=== PATIENT | female | born 1980 | race Caucasian/White ===

== ENCOUNTER 2020-12-24 23:01 | Inpatient (IN) | payer OTHER, SELFPAY ==
[2020-12-24 23:01] VITALS: BP 129/94; PULSE 84; RESP 16; TEMP 36.9; O2SAT 100; BMI 30.8
--- NOTE | 2020-12-24 23:22 | CT_ITS ---
HISTORY: Patient present pain, diffuse but more RLQ TECHNIQUE: Helically acquired images were obtained of the abdomen and pelvis following the intravenous administration of ml of 100mL Isovue-300 Iodinated contrast. No Oral contrast was administered. Coronal and sagittal reformats obtained. A radiation dose optimization technique was used for this scan. COMPARISON: None FINDINGS: # of images incl. paperwork: 398 LUNG BASES: Unremarkable. LIVER T BILIARY TRACT: Unremarkable gallbladder. Small hepatic hypodensities which are too small to characterize. ADRENAL GLANDS: Unremarkable. SPLEEN: Unremarkable. PANCREAS: Unremarkable. KIDNEYS/URETERS/BLADDER: No hydronephrosis or perinephric inflammation. Unremarkable ureters and bladder. LYMPH NODES: No suspicious adenopathy. STOMACH, SMALL AND LARGE BOWEL: No acute gastric finding. No small bowel obstruction or gross wall thickening. Appendix enlarged 1.3 cm with multiple appendicoliths at the appendix base. Moderate periappendiceal inflammatory stranding with small focus of extraluminal air, coronal image 52. No additional or remote free air. Likely secondary wall thickening of the cecum and adjacent terminal ileum. ASCITES/FREE AIR: Small volume free fluid in the dependent pelvis. No organized abscess. AORTA: Unremarkable. PELVIS: Unremarkable uterus. No evidence of adnexal mass. Multiple normal small follicles. MUSCULOSKELETAL: No acute osseous finding. CT/Abdomen/Pelvis W IV Cont ONLY IMPRESSION: 1. Acute appendicitis with small focus of adjacent extraluminal air consistent with perforation. 2. Likely secondary wall thickening of the cecum and adjacent terminal ileum. Primary ileocolitis or neoplastic etiology for appendicitis less likely given the presence of large appendicoliths though not completely excluded. Surgical consultation recommended. Individualized dose optimization techniques were used for this CT. at 0334 Reported and signed by: Jonnathan Ivy MD N.B. : The above Results were Read Back by Jonnathan Ivy MD to Dr. Fish Sauceda MD, and understanding confirmed on 12/25/2020 03:34:32 (ET). Electronically Signed: Jonnathan Ivy MD at 3:32 EDT Tel , Service support ,
[2020-12-24] MEDS: Ondansetron 4 MG/2 ML Vial IV (23:40)
[2020-12-24] MEDS: 0.9% Normal Saline 1,000 ML 1000 ML IV (23:40)
[2020-12-24] MEDS: Morphine 4 MG/ML Syringe IV (23:40)
[2020-12-24 23:44] LABS: Absolute Lymphocyte Count 1.47 X10^3/uL (0.83-4.51); Absolute Neutrophil Count 7.9 X10^3/uL (2.0-7.7); Basophil# 0.03 X10^3/uL; Basophil% 0.3 % (0-1); Hematocrit 45.1 % (37-47); Hemoglobin 14.4 g/dL (12.0-15.0); Lymphocyte # 1.47 X10^3/ul (0.83-4.51); Lymphocyte % 14.5 % (19-41); Mean Corp Hgb Conc 31.9 g/dL (32-36); Mean Platelet Vol. 9.3 fl (6.2-12.0); Monocyte# 0.63 X10^3/uL; Monocyte% 6.2 % (0-10); NRBC Flagged by Analyzer 0 % (0-5); Neutrophil # 7.91 X10^3/uL (2.7-7.7); Neutrophil % 77.7 % (47-70); Platelet Count 308 K/mm3 (150-450); RBC Distribution Width CV 11.6 % (11.6-14.6); RBC Distribution Width SD 40.2 fl (35.1-43.9); White Blood Count 10.2 K/mm3 (4.4-11.0)
[2020-12-25] VITALS (15 sets, daily range): BP systolic 109–134; BP diastolic 59–90; PULSE 62–109; RESP 16–18; TEMP 36.5–38.3; O2SAT 94–100; BMI 31.6
--- NOTE | 2020-12-25 | APP_PTH ---
PATIENT: JENNA AZUL LOC: MS3 U#:[id number] AGE/SX: 40/F ROOM: [facility] RE12/25/[address]: Dr. Oksana Carmichael MD : 1980 BED: 1 DIS: 12/29/2020 SPEC #: [id number] RECD: 12/26/20 07:32 STATUS: CODY PAIZ #: [id number] VIDHYA: 12/25/20 00:[address]: Oksana Carmichael DEPT: SURGICAL PATHOLOGY RECD BY: Hemal Mclaughlin ENTERED: 12/26/20 08:08 SP TYPE: APPENDIX OTHR DR: Dr. Adams Kahn MD Tissues: Appendix, NOS Procedures: Surgery Specimen Level III HEADER OPERATION: Laparoscopic appendectomy PRE-OP DIAGNOSIS: Acute appendicitis with small focus of adjacent extraluminal air consistent with perforation TISSUE SUBMITTED: Appendix MICROSCOPIC DIAGNOSIS Appendix, appendectomy: Acute appendicitis. Acute serositis. AM:marquise 12/27/2020 MICROSCOPIC DESCRIPTION Slides are reviewed. GROSS DESCRIPTION Received in fixative is one container labeled with the patient's name and designated appendix. The specimen consists of a vermiform appendix measuring 12 cm in length and varying in diameter from 0.6 to 1.8 cm. Serial sections reveal intraluminal fecal material. No mass lesions are identified. Travel Med Surg Rn sections are submitted in one cassette. / AM:marquise 12/26/20 TC:2 CPT: 98048
[2020-12-25 00:10] LABS: Internal QC Validated? YES +Cl - CLEAR BKGD; Pregnancy, Serum, hCG Quali. NEGATIVE Negative
[2020-12-25 00:18] LABS: ALB/GLOB Ratio 0.9 RATIO (0.9-2.4); AST(SGOT) 18 U/L (15-37); Alanine Aminotransfer ALT/SGPT 29 U/L (13-56); Albumin, Serum 3.8 g/dL (3.2-5.0); Alkaline Phosphatase 70 U/L (45-117); Anion Gap 6 (5-15); BUN 11 mg/dL (7-18); BUN/Creat Ratio 13.7 RATIO (10-20); Calcium,Total 8.7 mg/dL (8.5-10.1); Chloride 106 mmol/L (98-107); EST Glomerular Filtration Rate 85 mL/min (>60); Est Glom Filt Rate - Afr Amer 103 mL/min (>60); Estimated Creatinine Clearance 71.95 ml/min; Globulin 4.3 g/dL (2.2-4.2); Glucose 96 mg/dL (74-106); Lipase 118 U/L (73-393); Potassium 3.6 mmol/L (3.5-5.1); Protein, Total 8.1 g/dL (6.4-8.2); Sodium Level 137 mmol/L (136-145)
[2020-12-25 00:43] LABS: Bacteria 0 SEEN /hpf (None Seen); Mucous, Urine 0 SEEN /hpf (<or=2+); Red Blood Cells-Urine 0 SEEN /hpf (0-5); Squamous Epithelial Cells - UA 0 SEEN /hpf (5-10); White Blood Cells 0 SEEN /hpf (0-5)
[2020-12-25 00:50] LABS: Color, Urine Yellow (Yellow); Glucose, Dipstick Normal (Normal); Ketone-Dipstick Negative (Negative); Leukocyte Esterase-Dipstick Negative /ul (Negative); Nitrite-Dipstick Negative (Negative); Occult Blood-Urine Negative /ul (Negative); Protein-Dipstick Negative (Negative); Specific Gravity, Urine 1.005 (1.002-1.030); Urine Bilirubin Dipstick Negative (Negative); Urine Clarity Clear (Clear); Urine Urobilinogen Normal (Normal)
--- NOTE | 2020-12-25 01:49 | EKG12_ITS ---
Test Reason : EXM Blood Pressure : / mmHG Vent. Rate : 061 BPM Atrial Rate : 061 BPM P-R Int : 174 ms QRS Dur : 082 ms QT Int : 404 ms P-R-T Axes : 057 082 042 degrees QTc Int : 406 ms Normal sinus rhythm with sinus arrhythmia Normal ECG Confirmed by NICOLE MORALES, HARLAN ([id number]), publishing editor MAIDA MURCIA ([id number]) on 12/29/2020 10:56:45 AM Referred By: [facility] Confirmed By:HARLAN RIVERA MD
--- NOTE | 2020-12-25 02:34 | EDS_ITS ---
HPI HPI - GI History of Present Illness Chief Complaint: Abd Pain Informant: patient Narrative Narrative: Patient presents with abdominal pain. This has been going on for about a day. She thought it was related to eating a fast food poultry sandwich. She had some cramping and nausea. Now the pain is settled more toward the lower abdomen. She states it is across the front. Mild nausea. She had dry heaves but no vomiting. No change in bowel habits. No urinary symptoms. No real pelvic pain. Last menstrual period was 5 days ago and normal. Laying flat or pressing on it makes it worse. Sitting up makes it better. She denies fevers or chills. She has had prior C-sections x4 as well as tubal ligation. No appendectomy or cholecystectomy. [facility] Medical History Migraines Home Medications frovatriptan 2.5 mg PO Q2H PRN 12/24/20 [History Last Taken Unknown] topiramate [Topamax] 100 mg PO DAILY 12/24/20 [History Last Taken Unknown] Allergy/AdvReac Type Severity Reaction Status Date / Time No Known Allergies Allergy Verified 12/24/20 23:03 Surgical History History of History of carpal tunnel repair History of tubal ligation Social History Smoking Status: Former smoker ROS ROS ED Constitutional Constitutional ED: Denies chills or fever(s) ENT ENT ED: Denies rhinorrhea or sore throat Cardiovascular Cardiovascular: Denies chest pain Respiratory/Chest Respiratory/Chest: Denies cough or dyspnea Gastrointestinal Gastrointestinal: Reports abdominal pain, nausea and vomiting; Denies constipation, diarrhea or melena Genitourinary Genitourinary ED: Denies dysuria or hematuria Musculoskeletal Musculoskeletal: Denies back pain Integumentary Denies rash Neurologic Neurologic: Denies headache(s) Endocrine Endocrinology: Denies polydipsia or polyuria Hematologic/Lymphatic Hematologic/Lymphatic: Denies easy bleeding or easy bruising Allergic/Immunologic Allergic/Immunologic ED: Denies urticaria EXAM Physical Exam Const Vital Signs: 12/24/20 23:01 12/25/20 01:47 Temperature 98.5 F Temperature Source Temporal Pulse Rate 84 71 Respiratory Rate 16 16 Blood Pressure 129/94 H 116/59 L Blood Pressure Mean 105 78 Pulse Ox 100 100 Oxygen Delivery Method Room Air Positive well nourished and well developed General Appearance ED: well developed and NAD HEENT Reports dry mucous membranes Mouth ED: Yes dry mucous membranes Mouth: dry mucous membranes Resp normal respiratory effort and clear to auscultation bilaterally Cardio regular rate, regular rhythm and no murmurs GI non-distended GI Narrative: She does have some tenderness that is mostly in the right lower quadrant. Although she describes the pain across both sides of her lower abdomen it is clearly tender more in the right. There is no rebound or guarding. She is also more comfortable sitting up than laying back. Mild psoas sign. Auscultation: normoactive bowel sounds Palpation: soft and tender Back/Spine no CVA tenderness Extremity General Extremety ED: Negative for edema General Extremity: Negative for edema Neuro Sensorium / Orientation: alert and oriented to person Psych mental status grossly normal Skin Lesions: no lesions Rashes: no rashes MDM MDM MDM Narrative Medical decision making narrative: Patient's blood work and urinalysis including liver function tests lipase and CBC all look essentially normal. Serum is not reported but we have been having computer issues tonight. I have it verbally reported to us that it is negative they just cannot get it to show on the computer. We are also having issues with getting CTs read or transferring the reads to our system. I have looked at her scan. She does appear to have an enlarged appendix with suspicious for appendicolith and stranding inflammation all consistent with appendicitis. This does match her story of generalized abdominal symptoms that moved to the lower abdomen and now to the right lower quadrant. She does not have a an acute surgical abdomen. She is still comfortable. She feels little better with treatment here. I have given her antibiotics. She is n.p.o. I discussed the case with surgeon, Dr. Carmichael. Patient is being admitted. Lab Data Attestation: I reviewed the patient's lab results. Labs: Laboratory Results - last 24 hr 12/24/20 12/24/20 12/25/20 23:39 23:39 00:15 WBC 10.2 RBC 4.80 Hgb 14.4 Hct 45.1 MCV 94.0 MCH 30.0 MCHC 31.9 L RDW Std Deviation 40.2 RDW Coeff of Amber 11.6 Plt Count 308 MPV 9.3 Immature Gran % (Auto) 0.300 Neut % (Auto) 77.7 H Lymph % (Auto) 14.5 L [place] % (Auto) 6.2 Eos % (Auto) 1.0 Baso % (Auto) 0.3 Absolute Neuts (auto) 7.9 H Absolute Lymphs (auto) 1.47 Nucleated RBC % 0 Sodium 137 Potassium 3.6 Chloride 106 Carbon Dioxide 25.0 Anion Gap 6 BUN 11 Creatinine 0.80 Estim Creat Clear Calc 71.95 Est GFR (MDRD) Af Amer 103 Est GFR (MDRD) Non-Af 85 BUN/Creatinine Ratio 13.7 Glucose 96 Calcium 8.7 Total Bilirubin 1.00 AST 18 ALT 29 Alkaline Phosphatase 70 Total Protein 8.1 Albumin 3.8 Globulin 4.3 H Albumin/Globulin Ratio 0.9 Lipase 118 Urine Color Yellow Urine Clarity Clear Urine pH 7.0 Ur Specific [place] 1.005 Urine Protein Negative Urine Glucose (UA) Normal Urine Ketones Negative Urine Occult Blood Negative Urine Nitrite Negative Urine Bilirubin Negative Urine Urobilinogen Normal Ur Leukocyte Esterase Negative Urine RBC 0 SEEN Urine WBC 0 SEEN Ur Squamous Epith Cells 0 SEEN Urine Bacteria 0 SEEN Urine Mucus 0 SEEN Discharge Plan Dx/Rx/DC Orders Clinical Impression: Acute appendicitis Disposition Disposition: Acute Care Hospital [facility]
[2020-12-25] MEDS: 0.9% Normal Saline 1,000 ML 125 ML IV ×4 (04:23→20:08)
[2020-12-25] MEDS: Morphine 4 MG/ML Syringe IV ×6 (04:24→21:49)
--- NOTE | 2020-12-25 04:29 | PCM.HP.STD ---
HPI - General General Date of Admission: 12/25/20 HPI Narrative JENNA AZUL, is a 40 F who presents RLQ abdominal pain since Saturday morning. She states that the pain has been a sharp, cramping pain that has been consistently present, though it increases and decreases. The pain has been as severe as 9 out of 10 on a scale of 1-10. Presently, she states that it is a 6 out of 10. She has nausea but denies emesis. She denies dysuria. She presented to [facility] ED with workup as follows. WBC is normal but there is a left shift of the differential. She presently has a low grade temp of 99F. CT scan revealed dilated appendix with fecolith and with surrounding inflammation and small foci of air probably indicating perforation. [facility] Medical History Migraines Post depression Home Medications frovatriptan 2.5 mg PO Q2H PRN 12/24/20 [History Last Taken 12/24/20] topiramate [Topamax] 100 mg PO DAILY 12/24/20 [History Last Taken 12/24/20] Allergy/AdvReac Type Severity Reaction Status Date / Time No Known Allergies Allergy Verified 12/24/20 23:03 no significant family history Surgical History History of History of carpal tunnel repair History of tubal ligation [place] teeth extracted Social History Smoking Status: Former smoker ROS ROS Narrative Denies history of NC/CVA, denies TOB use at present, denies chronic numbness/weakness Had history of kidney infection Constitutional Constitutional: Denies fever(s) Cardiovascular Cardiovascular: Denies chest pain Respiratory/Chest Respiratory/Chest: Denies shortness of breath at rest or shortness of breath with exertion Gastrointestinal Gastrointestinal: Reports abdominal pain; Denies hematemesis or hematochezia Genitourinary Genitourinary: Denies dysuria Musculoskeletal Musculoskeletal: Denies abnormal gait or difficulty walking Integumentary Integumentary: Denies non-healing lesions Neurologic Neurologic: Denies numbness Vital Signs Vital Signs Vital Signs: 12/24/20 23:01 12/25/20 01:47 12/25/20 03:08 Temperature 98.5 F 97.7 F L Temperature Source Temporal Oral Pulse Rate 84 71 74 Respiratory Rate 16 16 16 Blood Pressure 129/94 H 116/59 L 123/80 H Blood Pressure Mean 105 78 94 Blood Pressure Source Blood Pressure Position Blood Pressure Location Pulse Ox 100 100 100 Oxygen Delivery Method Room Air Room Air 12/25/20 03:58 Temperature 99.5 F H Temperature Source Oral Pulse Rate 77 Respiratory Rate 16 Blood Pressure 126/80 H Blood Pressure Mean 95 Blood Pressure Source Monitor Blood Pressure Position Sitting Blood Pressure Location Left Arm Pulse Ox 100 Oxygen Delivery Method Room Air Weight Weight: 75.9 kg Body Mass Index (BMI) 31.6 Physical Exam Const oriented x3 Neck supple Resp normal respiratory effort Cardio regular rate GI GI Narrative: abdomen is soft but tender in the RLQ with positive Rovsing's sign, minimal guarding Extremity no clubbing, cyanosis or edema and no calf tenderness Neuro no focal motor deficits and gait normal Psych cooperative and affect normal Results Lab / Micro Data Result Diagrams: 12/24/20 23:39 12/24/20 23:39 Labs: Laboratory Results - last 24 hr 12/24/20 23:39: WBC 10.2, RBC 4.80, Hgb 14.4, Hct 45.1, MCV 94.0, MCH 30.0, MCHC 31.9 L, RDW Std Deviation 40.2, RDW Coeff of Amber 11.6, Plt Count 308, MPV 9.3, Immature Gran % (Auto) 0.300, Neut % (Auto) 77.7 H, Lymph % (Auto) 14.5 L, [place] % (Auto) 6.2, Eos % (Auto) 1.0, Baso % (Auto) 0.3, Absolute Neuts (auto) 7.9 H, Absolute Lymphs (auto) 1.47, Nucleated RBC % 0 12/24/20 23:39: Sodium 137, Potassium 3.6, Chloride 106, Carbon Dioxide 25.0, Anion Gap 6, BUN 11, Creatinine 0.80, Estim Creat Clear Calc 71.95, Est GFR (MDRD) Af Amer 103, Est GFR (MDRD) Non-Af 85, BUN/Creatinine Ratio 13.7, Glucose 96, Calcium 8.7, Total Bilirubin 1.00, AST 18, ALT 29, Alkaline Phosphatase 70, Total Protein 8.1, Albumin 3.8, Globulin 4.3 H, Albumin/Globulin Ratio 0.9, Lipase 118 12/25/20 00:15: Urine Color Yellow, Urine Clarity Clear, Urine pH 7.0, Ur Specific [place] 1.005, Urine Protein Negative, Urine Glucose (UA) Normal, Urine Ketones Negative, Urine Occult Blood Negative, Urine Nitrite Negative, Urine Bilirubin Negative, Urine Urobilinogen Normal, Ur Leukocyte Esterase Negative, Urine RBC 0 SEEN, Urine WBC 0 SEEN, Ur Squamous Epith Cells 0 SEEN, Urine Bacteria 0 SEEN, Urine Mucus 0 SEEN Radiology Impression Abdomen/Pelvis CT 12/24/20 23:22 IMPRESSION: 1. Acute appendicitis with small focus of adjacent extraluminal air consistent with perforation. 2. Likely secondary wall thickening of the cecum and adjacent terminal ileum. Primary ileocolitis or neoplastic etiology for appendicitis less likely given the presence of large appendicoliths though not completely excluded. Surgical consultation recommended. Individualized dose optimization techniques were used for this CT. at 0334 Reported and signed by: Jonnathan Ivy MD N.B. : The above Results were Read Back by Jonnathan Ivy MD to Dr. Fish Sauceda MD, and understanding confirmed on 12/25/2020 03:34:32 (ET). Electronically Signed: Jonnathan Ivy MD at 3:32 EDT Tel , Service support , ADDENDUM: 12/25/20 0341 IMPRESSION: 1. Acute appendicitis with small focus of adjacent extraluminal air consistent with perforation. 2. Likely secondary wall thickening of the cecum and adjacent terminal ileum. Primary ileocolitis or neoplastic etiology for appendicitis less likely given the presence of large appendicoliths though not completely excluded. Surgical consultation recommended. Individualized dose optimization techniques were used for this CT. at 0334 Reported and signed by: Jonnathan Ivy MD N.B. : The above Results were Read Back by Jonnathan Ivy MD to Dr. Fish Sauceda MD, and understanding confirmed on 12/25/2020 03:34:32 (ET). Electronically Signed: Jonnathan Ivy MD at 3:32 EDT Tel , Service support , Assessment & Plan Assessment/Plan (1) Acute appendicitis: QUALIFIERS: Appendicitis perforation presence: with perforation PLAN: Patient presents with perforated appendicitis, RLQ abdominal pain since Saturday morning Dr. Self will be taking over for me with regard to this patient's surgery and I have explained this to the patient and her . I have explained the surgery which will likely be done laparoscopically - that is - laparoscopic appendectomy. Patient acknowledges above.
[2020-12-25] MEDS: Bupivacaine Mpf 0.5% 30 ML VIAL (09:33)
--- NOTE | 2020-12-25 10:26 | PCM.OPRPT ---
Problems Associated Problem List Diagnoses (1) Acute appendicitis with rupture: Report of Operation Date of Procedure: 12/25/20 Pre-Operative Diagnosis: Acute appendicitis with rupture Post-Operative Diagnosis: Same Surgery/Procedure Performed:: Laparoscopic appendectomy Surgeon: Luis M Self solar energy systems designer: Rachel Weber Type of Anesthesia: General Anesthesiologist: Beronica Kumar Specimen's removed: Ruptured appendix and cecum Drains: Fifteen round Heriberto-Cunningham Estimated Blood Loss (mL): < 25 cc Fluids Replaced: 1 liter Description of Procedure: Patient was brought into the operating room. Placed in the supine position. Under excellent general endotracheal ovation the abdomen was sterilely prepped and draped in the usual fashion. Local was injected infraumbilically dissection was carried down to the fascia the fascia grasped with a Tana. Varies needle was placed inside the abdomen. The abdomen was insufflated to fifteen torr. A 10/12 trocar was placed without difficulty. Suprapubic #5 trocar was placed, the left lower quadrant #5 trocar was placed. Both of these under direct visualization without injury to underlying structures. Patient was noted to have an acute appendicitis that was walled off fairly decently into the cecum I was dissecting taking the mesoappendix down I had to dissect the terminal ileum off of this abscess walled off area. There is pretty clear that I was identified the base stump for this appendix secondary to the CAT scan showing an appendicolith I mobilized the cecum with the Enseal I then transected the cecum taking with the appendix and abscess cavity without difficulty. This took three loads of the forty-five linear cutter with the standard cutting needle. I placed the specimen in a specimen bag and delivered through the umbilical port. I used electrocautery and touch areas which was raw I had excellent hemostasis. I irrigated out the right lower quadrant and pelvis area with 2 L of irrigation. I placed a fifteen round Heriberto-Cunningham drain through a right sided incision I sutured it into the skin with a 3-0 nylon. I directed the drain from the abscess area down into the pelvis all the irrigation was removed. Trochars were removed under direct visualization hemostasis was noted. Fascia the umbilical port was closed with a [id number] stitch of 0 Vicryl. Skin incisions were closed with subcuticular stitches of 4-0 Monocryl. Steri-Strips were applied sterile dressings were applied and the patient tolerated the procedure well. Ring catheter was left in place and she has more than likely get a need to have several days here in the hospital with IV antibiotics. We did culture the appendix as well. Procedure Start Time: 09:33 Procedure Stop Time: 10:20 Admit VTE Documentation VTE Present on Admission: No VTE Mechan Device Prophylaxis: SCD's VTE Pharm Prophylaxis ordered?: No Reason prophylaxis not ordered:: Treatment Not Indicated
[2020-12-25] MEDS: 0.9% Saline Lock 10 ML Syringe IV ×3 (13:29→18:33)
[2020-12-25] MEDS: Acetaminophen 325 MG Tablet 650 MG PO (18:36)
[2020-12-26] VITALS (7 sets, daily range): BP systolic 104–142; BP diastolic 50–83; PULSE 82–94; RESP 16; TEMP 36.6–37.8; O2SAT 95–99
[2020-12-26] MEDS: Morphine 4 MG/ML Syringe IV ×7 (00:01→20:47)
[2020-12-26] MEDS: 0.9% Normal Saline 1,000 ML 125 ML IV ×3 (04:03→20:22)
[2020-12-26] MEDS: Acetaminophen 325 MG Tablet 650 MG PO ×2 (04:06→16:44)
[2020-12-26] MEDS: Rizatriptan Benzoate 5 MG Tablet PO ×3 (04:37→21:05)
--- NOTE | 2020-12-26 07:07 | PCM.PN.SRG ---
Subjective Subjective No flatus no bowel movements as of yet. Objective Data Objective Data Dressings are dry. Serosanguineous fluid coming out of PHU. Vital Signs: Vital Signs Temp Pulse Resp BP Pulse Ox 99.4 F H 90 16 124/76 H 97 12/26/20 04:05 12/26/20 04:05 12/26/20 04:05 12/26/20 04:05 12/26/20 04:05 Oxygen Delivery Method Room Air Weight: 167 lb 5.294 oz Body Mass Index (BMI) 31.6 Intake & Output: Intake and Output for Last 24 Hours 12/24/20 12/25/20 12/26/20 23:59 23:59 23:59 Intake Total 5182.92 / 5182.92 1101.08 / 1101.08 Output Total 1360 / 3095 2645 / 2645 Balance 3822.92 / 2087.92 -1543.92 / -1543.92 Lab / Micro Data Attestation: I reviewed the patient's lab results. Result Diagrams: 12/24/20 23:39 12/24/20 23:39 Micro: Microbiology 12/25/20 04:08 Mucosa - Nose SARS-CoV-2 Antigen (Rapid) - Final Assessment & Plan Assessment/Plan (1) Acute appendicitis with rupture: PLAN: We will check CBC CMP today. Continue IV antibiotics. Await GI function. We will leave PHU in place. We will CAROL Ring.
[2020-12-26 07:35] LABS: Absolute Lymphocyte Count 0.65 X10^3/uL (0.83-4.51); Absolute Neutrophil Count 8.4 X10^3/uL (2.0-7.7); Basophil# 0.03 X10^3/uL; Basophil% 0.3 % (0-1); Eosinophil# 0.02 X10^3/uL; Eosinophils% 0.2 % (0-5); Hematocrit 36.9 % (37-47); Lymphocyte # 0.65 X10^3/ul (0.83-4.51); Lymphocyte % 6.7 % (19-41); Mean Corp Hgb Conc 32.5 g/dL (32-36); Mean Corpuscular Hgb 30.7 pg (27.0-32.0); Mean Corpuscular Volume 94.4 fL (81-99); Mean Platelet Vol. 9.4 fl (6.2-12.0); Monocyte# 0.54 X10^3/uL; Monocyte% 5.6 % (0-10); NRBC Flagged by Analyzer 0 % (0-5); Neutrophil # 8.35 X10^3/uL (2.7-7.7); Neutrophil % 86.6 % (47-70); Platelet Count 220 K/mm3 (150-450); RBC Distribution Width CV 11.5 % (11.6-14.6); RBC Distribution Width SD 39.9 fl (35.1-43.9); Red Blood Count 3.91 M/mm3 (4.2-5.4); White Blood Count 9.7 K/mm3 (4.4-11.0)
[2020-12-26 07:59] LABS: ALB/GLOB Ratio 0.7 RATIO (0.9-2.4); AST(SGOT) 15 U/L (15-37); Alanine Aminotransfer ALT/SGPT 17 U/L (13-56); Albumin, Serum 2.4 g/dL (3.2-5.0); Alkaline Phosphatase 51 U/L (45-117); Anion Gap 7 (5-15); BUN 6 mg/dL (7-18); BUN/Creat Ratio 10.7 RATIO (10-20); Calcium,Total 7.7 mg/dL (8.5-10.1); Chloride 109 mmol/L (98-107); Creatinine, Serum 0.56 mg/dL (0.55-1.02); EST Glomerular Filtration Rate 128 mL/min (>60); Est Glom Filt Rate - Afr Amer 155 mL/min (>60); Estimated Creatinine Clearance 102.78 ml/min; Globulin 3.5 g/dL (2.2-4.2); Glucose 127 mg/dL (74-106); Potassium 3.7 mmol/L (3.5-5.1); Protein, Total 5.9 g/dL (6.4-8.2); Sodium Level 137 mmol/L (136-145)
--- NOTE | 2020-12-26 09:45 | CASEMGMT ---
PJ VILLEGAS Assessment: Face to Face with pt for initial transition planning/care coordination assessment. RN CM introduced self and role at [facility], pt voices understanding and consents to assessment. Pt is A/O x4 and answers all questions appropriately at this time. Pt sitting up in chair in no distress. Care providers, pharmacy, and demographics verified/updated. Admitting Dx: RLQ Abdominal Pain PCP:Femi Specialists:josias White Preferred Pharmacy: [facility] while inpatient Insurance: MMO Prescription Benefit: yes LW/HPOA: Pt denies having LW/DPOA. LNOK: Josemanuel Lara, Living Arrangements: Pt lives with and 4 children in a single story house with two steps to enter. Pt reports being I in ADL's and denies concerns at home. Transportation: Pt drives self and denies concerns with transportation. DME/HHC: Pt denies having any DME or previous HHC. Pt states no concerns with going home at time of dc. Pt states no further concerns/needs. CM to follow. Advised pt to ask CM if any further question/concerns/needs arise, voices understanding. Pt Goal: Home Plan: Home with support.
[2020-12-26] MEDS: Zolpidem Tartrate 5 MG Tablet PO (23:16)
[2020-12-27] MEDS: Morphine 4 MG/ML Syringe IV ×6 (02:42→17:25)
[2020-12-27] MEDS: 0.9% Saline Lock 10 ML Syringe IV ×6 (02:43→17:26)
[2020-12-27 02:45] VITALS: BP 130/81; PULSE 95; RESP 16; TEMP 37.7; O2SAT 92
[2020-12-27] MEDS: Acetaminophen 325 MG Tablet 650 MG PO ×2 (02:51→20:23)
[2020-12-27] MEDS: 0.9% Normal Saline 1,000 ML 125 ML IV ×3 (04:57→20:18)
[2020-12-27] MEDS: Ondansetron 4 MG/2 ML Vial IV (07:19)
[2020-12-27 08:17] VITALS: BP 121/81; PULSE 87; RESP 16; TEMP 36.6; O2SAT 94
[2020-12-27 08:48] LABS: Absolute Lymphocyte Count 0.61 X10^3/uL (0.83-4.51); Absolute Neutrophil Count 7.7 X10^3/uL (2.0-7.7); Basophil# 0.04 X10^3/uL; Basophil% 0.4 % (0-1); Eosinophil# 0.09 X10^3/uL; Hematocrit 36.5 % (37-47); Hemoglobin 11.9 g/dL (12.0-15.0); Lymphocyte # 0.61 X10^3/ul (0.83-4.51); Lymphocyte % 6.8 % (19-41); Mean Corp Hgb Conc 32.6 g/dL (32-36); Mean Corpuscular Hgb 30.9 pg (27.0-32.0); Mean Corpuscular Volume 94.8 fL (81-99); Mean Platelet Vol. 9.1 fl (6.2-12.0); Monocyte% 5.6 % (0-10); NRBC Flagged by Analyzer 0 % (0-5); Neutrophil # 7.68 X10^3/uL (2.7-7.7); Neutrophil % 85.5 % (47-70); Platelet Count 251 K/mm3 (150-450); RBC Distribution Width CV 11.5 % (11.6-14.6); RBC Distribution Width SD 39.8 fl (35.1-43.9); Red Blood Count 3.85 M/mm3 (4.2-5.4)
[2020-12-27 09:11] LABS: ALB/GLOB Ratio 0.6 RATIO (0.9-2.4); AST(SGOT) 13 U/L (15-37); Alanine Aminotransfer ALT/SGPT 15 U/L (13-56); Albumin, Serum 2.3 g/dL (3.2-5.0); Alkaline Phosphatase 58 U/L (45-117); Anion Gap 8 (5-15); BUN 5 mg/dL (7-18); BUN/Creat Ratio 10.9 RATIO (10-20); Calcium,Total 7.7 mg/dL (8.5-10.1); Chloride 108 mmol/L (98-107); Creatinine, Serum 0.46 mg/dL (0.55-1.02); EST Glomerular Filtration Rate 162 mL/min (>60); Est Glom Filt Rate - Afr Amer 196 mL/min (>60); Estimated Creatinine Clearance 125.13 ml/min; Globulin 3.7 g/dL (2.2-4.2); Glucose 106 mg/dL (74-106); Potassium 3.4 mmol/L (3.5-5.1); Sodium Level 139 mmol/L (136-145)
[2020-12-27 12:00] VITALS: BP 122/76; PULSE 82; RESP 16; TEMP 36.4; O2SAT 94
[2020-12-27 15:22] VITALS: BP 128/74; PULSE 87; RESP 16; TEMP 36.9; O2SAT 94
[2020-12-27 20:18] VITALS: BP 137/87; PULSE 85; RESP 16; TEMP 36.6; O2SAT 99
[2020-12-27] MEDS: oxyCODONE 5 MG Tablet PO (20:22)
[2020-12-28] MEDS: Acetaminophen 325 MG Tablet 650 MG PO ×2 (01:15→08:56)
[2020-12-28] MEDS: oxyCODONE 5 MG Tablet PO ×3 (01:16→19:17)
[2020-12-28 02:03] VITALS: BP 122/79; PULSE 75; RESP 16; TEMP 36.3; O2SAT 97
--- NOTE | 2020-12-28 05:30 | PN.SURG_ITS ---
Subjective Subjective Feeling much better today. No flatus as of yet. Objective Data Objective Data Abdomen is soft. Dressings are dry. PHU was yellow serous fluid. Vital Signs: Vital Signs Temp Pulse Resp BP Pulse Ox 97.4 F L 75 16 122/79 H 97 12/28/20 02:03 12/28/20 02:03 12/28/20 02:03 12/28/20 02:03 12/28/20 02:03 Oxygen Delivery Method Room Air Weight: 167 lb 5.294 oz Body Mass Index (BMI) 31.6 Intake & Output: Intake and Output for Last 24 Hours 12/26/20 12/27/20 12/28/20 23:59 23:59 23:59 Intake Total 3730.25 / 3730.25 4566.66 / 4866.66 350 / 350 Output Total 3425 / 3425 2925 / 3325 400 / 400 Balance 305.25 / 305.25 1641.66 / 1541.66 -50 / -50 Medical Nutrition Assessment Dietitian: Nutrition Therapy Diagnosis Start: 12/27/20 19:01 Freq: Status: Active Protocol: Document 12/27/20 19:13 RMA (Rec: 12/27/20 19:13 RMA [id number]) Nutrition Malnutrition Evidence of Malnutrition Exists No Intake Problem Inadequate Oral Intake Etiology related to altered GI function Signs/Symptoms as evidenced by NPO/clear liquids x day #3 today. Status Active Problem Recommendation Dietitian Recommendations/Changes Rec advance diet as medically able to Transitional with goal diet of Regular. Will add 240ml ensure clear TID w/ clear liquid trays given extended clear liquid diet of 3 days. Lab / Micro Data Result Diagrams: 12/27/20 08:40 12/27/20 08:40 Labs: Laboratory Results - last 24 hr 12/27/20 08:40: WBC 9.0, RBC 3.85 L, Hgb 11.9 L, Hct 36.5 L, MCV 94.8, MCH 30.9, MCHC 32.6, RDW Std Deviation 39.8, RDW Coeff of Amber 11.5 L, Plt Count 251, MPV 9.1, Immature Gran % (Auto) 0.700, Neut % (Auto) 85.5 H, Lymph % (Auto) 6.8 L, [place] % (Auto) 5.6, Eos % (Auto) 1.0, Baso % (Auto) 0.4, Absolute Neuts (auto) 7.7, Absolute Lymphs (auto) 0.61 L, Nucleated RBC % 0 12/27/20 08:40: Sodium 139, Potassium 3.4 L, Chloride 108 H, Carbon Dioxide 23.0, Anion Gap 8, BUN 5 L, Creatinine 0.46 L, Estim Creat Clear Calc 125.13, Est GFR (MDRD) Af Amer 196, Est GFR (MDRD) Non-Af 162, BUN/Creatinine Ratio 10.9, Glucose 106, Calcium 7.7 L, Total Bilirubin 0.70, AST 13 L, ALT 15, Alkaline Phosphatase 58, Total Protein 6.0 L, Albumin 2.3 L, Globulin 3.7, Albumin/Globulin Ratio 0.6 L Micro: Microbiology 12/25/20 10:20 Tissue - Other Gram Stain - Final 12/25/20 10:20 Tissue - Other Wound Culture - Preliminary Gram negative conchis 12/25/20 04:08 Mucosa - Nose SARS-CoV-2 Antigen (Rapid) - Final Assessment & Plan Assessment/Plan (1) Acute appendicitis with rupture: PLAN: Acute appendicitis with rupture: PLAN: We will check CBC CMP today. Continue IV antibiotics. Await GI function. We will leave PHU in place.
[2020-12-28 07:20] LABS: Absolute Lymphocyte Count 0.99 X10^3/uL (0.83-4.51); Absolute Neutrophil Count 5.3 X10^3/uL (2.0-7.7); Basophil# 0.03 X10^3/uL; Basophil% 0.4 % (0-1); Eosinophil# 0.19 X10^3/uL; Eosinophils% 2.7 % (0-5); Hematocrit 33.8 % (37-47); Hemoglobin 10.7 g/dL (12.0-15.0); Lymphocyte # 0.99 X10^3/ul (0.83-4.51); Mean Corp Hgb Conc 31.7 g/dL (32-36); Mean Corpuscular Hgb 30.3 pg (27.0-32.0); Mean Corpuscular Volume 95.8 fL (81-99); Mean Platelet Vol. 9.6 fl (6.2-12.0); Monocyte% 7.1 % (0-10); NRBC Flagged by Analyzer 0 % (0-5); Neutrophil # 5.33 X10^3/uL (2.7-7.7); Neutrophil % 75.4 % (47-70); Platelet Count 271 K/mm3 (150-450); RBC Distribution Width CV 11.5 % (11.6-14.6); RBC Distribution Width SD 40.2 fl (35.1-43.9); Red Blood Count 3.53 M/mm3 (4.2-5.4); White Blood Count 7.1 K/mm3 (4.4-11.0)
[2020-12-28 07:42] LABS: ALB/GLOB Ratio 0.7 RATIO (0.9-2.4); AST(SGOT) 15 U/L (15-37); Alanine Aminotransfer ALT/SGPT 16 U/L (13-56); Albumin, Serum 2.2 g/dL (3.2-5.0); Alkaline Phosphatase 56 U/L (45-117); Anion Gap 7 (5-15); BUN 4 mg/dL (7-18); BUN/Creat Ratio 9.8 RATIO (10-20); Calcium,Total 7.8 mg/dL (8.5-10.1); Chloride 108 mmol/L (98-107); Creatinine, Serum 0.41 mg/dL (0.55-1.02); EST Glomerular Filtration Rate 185 mL/min (>60); Est Glom Filt Rate - Afr Amer 224 mL/min (>60); Estimated Creatinine Clearance 140.39 ml/min; Globulin 3.3 g/dL (2.2-4.2); Glucose 94 mg/dL (74-106); Potassium 3.1 mmol/L (3.5-5.1); Protein, Total 5.5 g/dL (6.4-8.2); Sodium Level 139 mmol/L (136-145)
[2020-12-28 08:59] VITALS: BP 127/87; PULSE 84; RESP 18; TEMP 36.6; O2SAT 99
[2020-12-28] MEDS: Ibuprofen 600 MG Tablet PO (11:09)
[2020-12-28] MEDS: Potassium Chloride Oral Tablet 20 MEQ 40 MEQ PO (11:09)
[2020-12-28] MEDS: 0.9% Normal Saline 1,000 ML 65 ML IV (11:10)
[2020-12-28 14:21] VITALS: BP 125/80; PULSE 70; RESP 16; TEMP 36.6; O2SAT 99
[2020-12-28 19:50] VITALS: BP 131/85; PULSE 69; RESP 16; TEMP 36.8; O2SAT 100
[2020-12-29] MEDS: oxyCODONE 5 MG Tablet PO ×3 (01:08→12:24)
[2020-12-29] MEDS: 0.9% Normal Saline 1,000 ML 65 ML IV (01:13)
[2020-12-29 02:00] VITALS: BP 140/63; PULSE 71; RESP 16; TEMP 36.8; O2SAT 95
[2020-12-29 07:58] VITALS: BP 124/80; PULSE 89; RESP 12; TEMP 36.6; O2SAT 98
[2020-12-29 08:08] VITALS: PULSE 89; RESP 12; O2SAT 98
[2020-12-29 08:55] VITALS: PULSE 76
--- NOTE | 2020-12-29 11:40 | EX.PCM.DISCH ---
Discharge Instructions Procedure Appendectomy Diet Discharge Diet: Light diet - advance as tolerated (if you have questions about your diet instructions, please talk to you doctor.) Activity Discharge Activity: May Not Drive (for 3-5 days or while taking narcotic pain meds.) May shower in (days): 1 Dressing / Incision Call your doctor if your incision/area has: Continuous Slow Oozing, Sudden Increased Bleeding, Increased Pain/ Swelling, Increased Redness and Foul Smelling Discharge Call your doctor if you observe: Fever of 101 or Higher Suture Line Care: Avoid Pulling/Pushing and Avoid Pinching/Bending Additional Dressing/Incision Instructions:: Keep dressing clean and dry. Change or remove dressing in 2 days. Leave steri strips for 1 week. May protect with a gauze bandaid. Follow Up Care Please Follow Up With: Estee Obrien PA-C When: Call office to schedule an appointment to be seen in 1 week. Test Results: Test results from this visit will be discussed in further detail at your follow-up appointment, if applicable. Discharge Plan Admission Admit Date/Time: 12/25/20 03:14 Attending Provider: Oksana Carmichael Primary Care Provider: Adams Kahn Discharge Orders/Prescriptions Prescriptions: New levofloxacin 500 mg tablet 500 mg PO DAILY Qty: 7 RF: 0 oxycodone-acetaminophen [Endocet] 5-325 mg tablet 1 tab PO Q6H PRN (Reason: pain) 5 Days Qty: 20 RF: 0 Continued frovatriptan 2.5 mg Tablet 2.5 mg PO Q2H PRN (Reason: Headache) RF: 0 topiramate [Topamax] 100 mg Tablet 100 mg PO DAILY RF: 0 Referrals / Follow Up: Adams Kahn MD [Primary Care Provider] - Estee Obrien PA-C [PHYSICIAN HEAD INSULATION BOARD SAW OPERATOR] -
--- NOTE | 2020-12-29 11:40 | PCM.DC.SUM ---
Providers Date of Admission: 12/25/20 Primary Care Physician: Dr. Adams Kahn MD Reason For Visit: RLQ ABDOMINAL PAIN Diagnosis Discharge Diagnosis (1) Acute appendicitis with rupture: Status: Acute Code(s): K35.32 - Acute appendicitis with perforation and localized peritonitis, without abscess Medications at Discharge Home Medications frovatriptan 2.5 mg PO Q2H PRN 12/24/20 topiramate [Topamax] 100 mg PO DAILY 12/24/20 levofloxacin 500 mg PO DAILY #7 tab 12/29/20 oxycodone-acetaminophen [Endocet] 1 tab PO Q6H PRN 5 Days #20 tab 12/29/20 Hospital Course Operations appendectomy Procedures None Summary of Care Provided Hospital Course: This a 40-year-old white female presented to the hospital on 12/25/2020. She was diagnosed with a perforated appendix. Subsequently underwent a laparoscopic appendectomy with limited seek ectomy on 12/25/2020. A drain was left in place. Cultures were obtained multiple organisms growing all of them sensitive to Levaquin. Her bowel function was slow to return she started to have bowel movements her drain was subsequently removed today. She will be sent home with a prescription for Levaquin for 7 days prescription for Percocet and she will follow-up with Estee Kelley my physician accounts receivable assistant Physical Exam Const alert, oriented x3 and no apparent distress General Appearance: cooperative and comfortable Orientation / Consciousness: awake, oriented to person, oriented to place and oriented to time Exam Limitations: no limitations GI GI Narrative: PHU was removed without difficulty. All dressings are dry. Medical Records Data Medical Nutrition Assessment Dietitian: Nutrition Therapy Diagnosis Start: 12/27/20 19:01 Freq: Status: Active Protocol: Document 12/27/20 19:13 RMA (Rec: 12/27/20 19:13 RMA [id number]) Nutrition Malnutrition Evidence of Malnutrition Exists No Intake Problem Inadequate Oral Intake Etiology related to altered GI function Signs/Symptoms as evidenced by NPO/clear liquids x day #3 today. Status Active Problem Recommendation Dietitian Recommendations/Changes Rec advance diet as medically able to Transitional with goal diet of Regular. Will add 240ml ensure clear TID w/ clear liquid trays given extended clear liquid diet of 3 days. Weight / BMI Weight Weight: 167 lb 5.294 oz Body Mass Index (BMI) 31.6 ABG / Lab / Microbiology Data Result Diagrams: 12/28/20 05:54 12/28/20 05:54 Microbiology: Microbiology 12/25/20 10:20 Tissue - Other Gram Stain - Final 12/25/20 10:20 Tissue - Other Wound Culture - Final Escherichia coli Klebsiella pneumoniae sp pneum Proteus mirabilis 12/25/20 10:20 Tissue - Other Anaerobic Culture - Preliminary Checking for anaerobes, further studies to follow. 12/25/20 04:08 Mucosa - Nose SARS-CoV-2 Antigen (Rapid) - Final D/C Instructions Discharge Diet: Light diet - advance as tolerated (if you have questions about your diet instructions, please talk to you doctor.) May shower in (days): 1 Call your doctor if your incision/area has: Continuous Slow Oozing, Sudden Increased Bleeding, Increased Pain/ Swelling, Increased Redness and Foul Smelling Discharge Call your doctor if you observe: Fever of 101 or Higher Suture Line Care: Avoid Pulling/Pushing and Avoid Pinching/Bending Additional Dressing/Incision Instructions: Keep dressing clean and dry. Change or remove dressing in 2 days. Leave steri strips for 1 week. May protect with a gauze bandaid. Please Follow Up With: Estee Obrien PA-C When: Call office to schedule an appointment to be seen in 1 week. Meaningful Use Info Meaningful Use Diagnoses (Choose all that apply): None applicable Discharge Plan Admission Admit Date/Time: 12/25/20 03:14 Attending Provider: Oksana Carmichael Primary Care Provider: Adams Kahn Discharge Orders/Prescriptions Prescriptions: New levofloxacin 500 mg tablet 500 mg PO DAILY Qty: 7 RF: 0 oxycodone-acetaminophen [Endocet] 5-325 mg tablet 1 tab PO Q6H PRN (Reason: pain) 5 Days Qty: 20 RF: 0 Continued frovatriptan 2.5 mg Tablet 2.5 mg PO Q2H PRN (Reason: Headache) RF: 0 topiramate [Topamax] 100 mg Tablet 100 mg PO DAILY RF: 0 Referrals / Follow Up: Adams Kahn MD [Primary Care Provider] - Estee Obrien PA-C [PHYSICIAN CHARGE HISTOTECHNOLOGIST] -
[2020-12-29 12:47] VITALS: BP 136/87; PULSE 77; RESP 16; TEMP 37.1; O2SAT 98
--- NOTE | 2020-12-29 16:08 | NURSING ---
This RN reviewed SN charting
== END 2020-12-29 13:43 | disposition home or self-care (01) | DRG 340 ==
LOC: ED 12-25 03:05 → MS3 12-25 13:08
PROVIDERS: Surgery; Admitting Provider Surgery; Emergency Provider Emergency Medicine; PCP Family Medicine; Visit Provider Surgery
PROC: 0DTJ4ZZ Resection of Appendix, Percutaneous Endoscopic Approach (ICD-10-PCS; CPT 44970; principal; 2020-12-25 09:00)
DX: K35.32 Acute appendicitis with perforation, localized peritonitis, and gangrene, without abscess (principal); G43.909 Migraine, unspecified, not intractable, without status migrainosus; Z87.891 Personal history of nicotine dependence
CPT/HCPCS: 36415; 74177; 80053; 81001; 83690; 84703; 85025; 87070; 87075; 87077; 87102; 87186; 87205; 87206; 87426; 88304; 93005; 99251; 99284; J7030; J7040; J7050; Q9967; A4216; C1760; G0463; J2405

== ENCOUNTER → 2022-01-15 | Outpatient (CLI) | payer OTHER, SELFPAY ==
[2022-01-15 17:05] LABS: Absolute Neutrophil Count 6.1 X10^3/uL (2.0-7.7); Basophil# 0.05 X10^3/uL; Basophil% 0.6 % (0-1); Eosinophil# 0.09 X10^3/uL; Eosinophils% 1.1 % (0-5); Hematocrit 42.7 % (37-47); Hemoglobin 13.9 g/dL (12.0-15.0); Lymphocyte % 16.5 % (19-41); Mean Corp Hgb Conc 32.6 g/dL (32-36); Mean Corpuscular Hgb 30.4 pg (27.0-32.0); Mean Corpuscular Volume 93.4 fL (81-99); Mean Platelet Vol. 9.4 fl (6.2-12.0); Monocyte# 0.36 X10^3/uL; Monocyte% 4.6 % (0-10); NRBC Flagged by Analyzer 0 % (0-5); Neutrophil # 6.05 X10^3/uL (2.7-7.7); Neutrophil % 76.8 % (47-70); Platelet Count 302 K/mm3 (150-450); RBC Distribution Width CV 13.1 % (11.6-14.6); RBC Distribution Width SD 44.6 fl (35.1-43.9); Red Blood Count 4.57 M/mm3 (4.2-5.4); White Blood Count 7.9 K/mm3 (4.4-11.0)
[2022-01-15 17:09] LABS: Erythrocyte Sedimentation Rate 15 mm/hr (0-30)
[2022-01-15 17:56] LABS: AST(SGOT) 15 U/L (15-37); Alanine Aminotransfer ALT/SGPT 24 U/L (13-56); Albumin, Serum 3.8 g/dL (3.2-5.0); Alkaline Phosphatase 56 U/L (45-117); Anion Gap 6 (5-15); BUN 10 mg/dL (7-18); BUN/Creat Ratio 12.1 RATIO (10-20); CRP 4.66 mg/L (0.0-3.0); Calcium,Total 8.8 mg/dL (8.5-10.1); Chloride 109 mmol/L (98-107); Creatinine, Serum 0.83 mg/dL (0.55-1.02); EST Glomerular Filtration Rate 82 mL/min (>60); Est Glom Filt Rate - Afr Amer 99 mL/min (>60); Free T3 2.6 pg/mL (2.18-3.98); Globulin 3.8 g/dL (2.2-4.2); Glucose 90 mg/dL (74-106); LDH 177 U/L (84-246); Potassium 3.8 mmol/L (3.5-5.1); Protein, Total 7.6 g/dL (6.4-8.2); Sodium Level 142 mmol/L (136-145); T4 Free Direct 1.04 ng/dL (0.76-1.46); Thyroid Stim Hormone (TSH) 0.58 uIU/mL (0.358-3.74)
[2022-01-17 13:07] LABS: Anti-Centromere B Ab <0.2 AI (0.0-0.9); Anti-Chromatin <0.2 AI (0.0-0.9); Anti-Jo <0.2 AI (0.0-0.9); Anti-Scleroderma-70 AB 0.2 AI (0.0-0.9); RNP Ab <0.2 AI (0.0-0.9); SJOGREN'S Anti-SS-A test < 0.2 AI (0.0-0.9); SJOGREN'S Anti-SS-B test < 0.2 AI (0.0-0.9); Smith Ab <0.2 AI (0.0-0.9)
[2022-01-18 15:18] LABS: Anti-dsDNA Ab 1 IU/mL (0-9)
[2022-01-18 16:09] LABS: Endomysial Antibody IgA Negative (Negative)
[2022-01-18 17:04] LABS: Immunoglobulin A < 5 mg/dL (87-352); t-Transglutaminase IgA <2 U/mL (0-3)
[2022-01-24 11:08] LABS: Albumin 3.9 g/dL (2.9-4.4); Alpha-1-Globulins 0.3 g/dL (0.0-0.4); Alpha-2-Globulins 0.6 g/dL (0.4-1.0); Cytoplasmic Ab (C-ANCA) <1:20 titer (Neg:<1:20); Gamma Globulin 1.3 g/dL (0.4-1.8); Immunoglobulin E < 2 IU/mL (6-495); Immunoglobulin G 1415 mg/dL (586-1602); Immunoglobulin M 49 mg/dL (26-217)
[2022-01-24 16:43] LABS: Gastrin, Serum 44 pg/mL (0-115); Immunoglobulin A 7 mg/dL (87-352); Perinuclear Ab (P-ANCA) <1:20 titer (Neg:<1:20)
== END | disposition home or self-care (01) ==
PROVIDERS: PCP Family Medicine; Referring Provider Internal Medicine Gastroenterology; Visit Provider Internal Medicine Gastroenterology
DX: R10.9 Unspecified abdominal pain (principal); R19.7 Diarrhea, unspecified
CPT/HCPCS: 36415; 80053; 82784; 82785; 82941; 83516; 83615; 84165; 84439; 84443; 84481; 85025; 85652; 86140; 86225; 86235; 86255; 86256; 86334

== ENCOUNTER → 2022-01-30 | Outpatient (CLI) | payer OTHER, SELFPAY ==
[2022-02-02 11:07] LABS: Calprotectin, Stool <16 ug/g (0-120)
== END | disposition home or self-care (01) ==
LOC: LABSPEC 11:01
PROVIDERS: PCP Family Medicine; Visit Provider Internal Medicine Gastroenterology
DX: R10.9 Unspecified abdominal pain (principal); R19.7 Diarrhea, unspecified
CPT/HCPCS: 83630; 83993

== ENCOUNTER 2022-04-10 12:38 | Outpatient (CLI) | payer OTHER, SELFPAY ==
[2022-04-10 13:32] LABS: CRP < 2.90 mg/L (0.0-3.0)
[2022-04-10 19:02] LABS: Erythrocyte Sedimentation Rate 9 mm/hr (0-30)
[2022-04-11 12:08] LABS: Anti-Centromere B Ab <0.2 AI (0.0-0.9); Anti-Chromatin <0.2 AI (0.0-0.9); Anti-Jo <0.2 AI (0.0-0.9); Anti-Scleroderma-70 AB 0.2 AI (0.0-0.9); RNP Ab <0.2 AI (0.0-0.9); SJOGREN'S Anti-SS-A test < 0.2 AI (0.0-0.9); SJOGREN'S Anti-SS-B test < 0.2 AI (0.0-0.9); Smith Ab <0.2 AI (0.0-0.9)
[2022-04-11 14:49] LABS: Anti-dsDNA Ab 1 IU/mL (0-9)
[2022-04-16 12:28] LABS: Pancreatic Elastase, Fecal 330 (>200)
== END 2022-04-10 23:59 | disposition home or self-care (01) ==
PROVIDERS: PCP Family Medicine; Referring Provider Internal Medicine Gastroenterology; Visit Provider Internal Medicine Gastroenterology
DX: R19.7 Diarrhea, unspecified (principal); R10.9 Unspecified abdominal pain
CPT/HCPCS: 36415; 82653; 85652; 86140; 86225; 86235